=== PATIENT | female | born 1980 | race Caucasian/White ===

== ENCOUNTER 2017-11-21 13:54 | Emergency (ER) | payer OTHER ==
[2017-11-21] MEDS ORDERED: Ketorolac Tromethamine 30 MG/ML VIAL ONE (14:26)
== END 2017-11-21 14:35 | disposition home or self-care (01) ==
LOC: MADERS 13:54
DX: M62.830 Muscle spasm of back (principal); F31.9 Bipolar disorder, unspecified; F17.210 Nicotine dependence, cigarettes, uncomplicated; Z79.899 Other long term (current) drug therapy
CPT/HCPCS: 96372; J1885

== ENCOUNTER 2025-02-28 15:16 | Emergency (ER) | payer OTHER ==
[~2025-02-28 15:16] MED LIST: Iopamidol 370 76% 100 ML VIAL ONE
[2025-02-28 16:02] LABS: #Basophils 0.1 thou/uL (0.0-0.2); #Eosinophils 0.2 thou/uL (0.0-0.7); #Lymphocytes 2.6 thou/uL (1.20-3.40); #Monocytes 0.4 thou/uL (0.11-0.59); #Neutrophils 4.7 thou/uL (1.40-6.50); %Basophils 1.2 % (0.0-1.0); %Eosinophils 2.2 % (0.0-10.0); %Lymphocytes 32.4 % (21.0-51.0); %Monocytes 5.5 % (0.0-10.0); %Neutrophils 58.7 % (42.0-75.0); BHCG - Serum Negative (NEGATIVE); Hematocrit 39.6 % (36.0-47.0); Hemoglobin 12.8 g/dL (12.0-16.0); Mean Corpuscular Hemoglobin 31.3 pg (27.0-31.0); Mean Corpuscular Volume 97.3 fl (78.0-98.0); Platelet Count 358 10x3/uL (130-400); Pregs Control Background? CLEAR/WHITE (CLR/WHITE); Pregs Control Bar Appear? YES (CONTROL BAR); Red Blood Cell (RBC) Count 4.07 mill/uL (4.20-5.40); White Blood Cell (WBC) Count 7.9 10x3/uL (4.8-10.8)
[2025-02-28 16:04] LABS: ALT (SGPT) 26 U/L (Less than 34); AST (SGOT) 26 U/L (11-34); Albumin 4.1 g/dL (3.1-4.5); Alkaline Phosphatase 48 U/L (40-110); Anion Gap 18 mmol/L (10-20); BUN (Urea Nitrogen) 15 mg/dL (7.0-18.7); Bilirubin, Total 0.3 mg/dL (0.3-1.2); Calc. Creatinine Clearance 0 mL/min (70-130); Calcium 8.6 mg/dL (7.8-10.44); Carbon Dioxide 19 mmol/L (22-29); Chloride 100 mmol/L (98-107); Globulin 2.6 g/dL (2.4-3.5); Glucose 96 mg/dL (70-105); Potassium 4.0 mmol/L (3.5-5.1); Sodium 133 mmol/L (136-145)
[2025-02-28 16:06] LABS: Troponin I Less than 0.010 ng/mL (< 0.028)
[2025-02-28] MEDS ORDERED: Aspirin Chewable 81 MG TAB ONE (16:08)
[2025-02-28] MEDS ORDERED: Mag-Al 1200 mg/1200 mg/30 ML UDCUP ONE (16:44)
[2025-02-28] MEDS ORDERED: Lidocaine Viscous Sol 2% 15 ml UD Cup ONE (16:45)
[2025-02-28] MEDS ORDERED: Famotidine/PF 20 mg/2ml Vial ONE (17:00)
[2025-02-28 18:57] LABS: Troponin I 0.013 ng/mL (< 0.028)
== END 2025-02-28 19:33 | disposition home or self-care (01) ==
LOC: MADERS 15:16
DX: R07.2 Precordial pain (principal); K44.9 Diaphragmatic hernia without obstruction or gangrene; I10 Essential (primary) hypertension; M79.7 Fibromyalgia; E78.00 Pure hypercholesterolemia, unspecified; F17.210 Nicotine dependence, cigarettes, uncomplicated; Z79.82 Long term (current) use of aspirin; Z79.899 Other long term (current) drug therapy
CPT/HCPCS: 36415; 71046; 74177; 80053; 83690; 84484; 84703; 85025; 93005; 96374; Q9967

== ENCOUNTER 2025-03-01 09:06 | Outpatient (CLI) | payer OTHER | END 2025-03-01 09:07 | disposition home or self-care (01) | LOC: MADLAB 09:06 | PROVIDERS: ATTEND Internal Medicine | DX: R07.9 Chest pain, unspecified (principal) | CPT/HCPCS: 36415; 82088; 82384; 82533; 83835; 84244 ==

== ENCOUNTER 2025-05-04 11:06 | Outpatient (CLI) | payer OTHER ==
[2025-05-04 11:30] LABS: Glucose, Urine (Dipstick) Negative (Negative); Leukocyte Negative (Negative); Protein, Urine (Dipstick) Negative (Neg-Trace); Specific Gravity, Urine 1.010 (1.005-1.030)
[2025-05-04 11:32] LABS: #Basophils 0.1 thou/uL (0.0-0.2); #Eosinophils 0.2 thou/uL (0.0-0.7); #Lymphocytes 2.5 thou/uL (1.20-3.40); #Monocytes 0.4 thou/uL (0.11-0.59); #Neutrophils 8.5 thou/uL (1.40-6.50); %Basophils 1.0 % (0.0-1.0); %Eosinophils 1.7 % (0.0-10.0); %Lymphocytes 21.5 % (21.0-51.0); %Monocytes 3.5 % (0.0-10.0); %Neutrophils 72.4 % (42.0-75.0); Hematocrit 41.4 % (36.0-47.0); Hemoglobin 13.2 g/dL (12.0-16.0); Mean Corpuscular Hemoglobin 31.0 pg (27.0-31.0); Mean Corpuscular Volume 97.0 fl (78.0-98.0); Platelet Count 322 10x3/uL (130-400); Red Blood Cell (RBC) Count 4.27 mill/uL (4.20-5.40); White Blood Cell (WBC) Count 11.7 10x3/uL (4.8-10.8)
[2025-05-04 11:40] LABS: Albumin 4.5 g/dL (3.1-4.5); Anion Gap 15 mmol/L (10-20); BUN (Urea Nitrogen) 10 mg/dL (7.0-18.7); BUN/Creatinine Ratio 15.38; Calc. Creatinine Clearance 0 mL/min (70-130); Calcium 9.1 mg/dL (7.8-10.44); Carbon Dioxide 21 mmol/L (22-29); Chloride 110 mmol/L (98-107); Glucose 96 mg/dL (70-105); Potassium 3.8 mmol/L (3.5-5.1); Sodium 142 mmol/L (136-145)
[2025-05-04 11:53] LABS: Bacteria/HPF Rare-Few HPF (None Seen); RBC/HPF 0-3 HPF (0-3); WBC/HPF None Seen HPF (0-3)
[2025-05-04 16:49] LABS: Protein, Urine Random Quant Less than 10 mg/dL (1-14)
== END 2025-05-04 11:07 | disposition home or self-care (01) ==
LOC: MADLAB 11:06
PROVIDERS: ATTEND Internal Medicine Nephrology
DX: I10 Essential (primary) hypertension (principal)
CPT/HCPCS: 36415; 80069; 81001; 82570; 84156; 85025

== ENCOUNTER 2025-05-08 15:53 | Emergency (ER) | payer OTHER ==
[2025-05-08] MEDS ORDERED: Aspirin Chewable 81 MG TAB ONE (16:02)
[2025-05-08] MEDS ORDERED: Lidocaine Viscous Sol 2% 15 ml UD Cup ONE (16:24)
[2025-05-08] MEDS ORDERED: Mag-Al 1200 mg/1200 mg/30 ML UDCUP ONE (16:24)
[2025-05-08 16:30] LABS: #Basophils 0.1 thou/uL (0.0-0.2); #Eosinophils 0.2 thou/uL (0.0-0.7); #Lymphocytes 3.3 thou/uL (1.20-3.40); #Monocytes 0.4 thou/uL (0.11-0.59); #Neutrophils 4.5 thou/uL (1.40-6.50); %Basophils 1.4 % (0.0-1.0); %Eosinophils 2.0 % (0.0-10.0); %Lymphocytes 38.8 % (21.0-51.0); %Monocytes 4.7 % (0.0-10.0); %Neutrophils 53.1 % (42.0-75.0); Hematocrit 41.6 % (36.0-47.0); Hemoglobin 13.2 g/dL (12.0-16.0); Mean Corpuscular Hemoglobin 31.1 pg (27.0-31.0); Mean Corpuscular Volume 98.0 fl (78.0-98.0); Platelet Count 328 10x3/uL (130-400); Red Blood Cell (RBC) Count 4.24 mill/uL (4.20-5.40); White Blood Cell (WBC) Count 8.5 10x3/uL (4.8-10.8)
[2025-05-08 16:42] LABS: ALT (SGPT) 18 U/L (Less than 34); AST (SGOT) 21 U/L (11-34); Albumin 4.6 g/dL (3.1-4.5); Alkaline Phosphatase 48 U/L (40-110); Anion Gap 15 mmol/L (10-20); BUN (Urea Nitrogen) 6 mg/dL (7.0-18.7); Bilirubin, Total 0.1 mg/dL (0.3-1.2); Calc. Creatinine Clearance 0 mL/min (70-130); Calcium 9.0 mg/dL (7.8-10.44); Carbon Dioxide 23 mmol/L (22-29); Chloride 111 mmol/L (98-107); Globulin 2.4 g/dL (2.4-3.5); Glucose 92 mg/dL (70-105); Potassium 3.8 mmol/L (3.5-5.1); Sodium 145 mmol/L (136-145)
[2025-05-08 16:48] LABS: Troponin I Less than 0.010 ng/mL (< 0.028)
== END 2025-05-08 17:24 | disposition home or self-care (01) ==
LOC: MADERS 15:53
DX: R07.2 Precordial pain (principal); K21.00 Gastro-esophageal reflux disease with esophagitis, without bleeding; E78.00 Pure hypercholesterolemia, unspecified; I10 Essential (primary) hypertension; M79.7 Fibromyalgia; F17.210 Nicotine dependence, cigarettes, uncomplicated; Z79.82 Long term (current) use of aspirin; Z79.899 Other long term (current) drug therapy
CPT/HCPCS: 71045; 80053; 84484; 85025; 93005; 94760